=== PATIENT | female | born 1940 | race Caucasian/White ===

== ENCOUNTER → 2016-10-25 | Outpatient (CLI) | payer MEDICARE, OTHER | END | disposition home or self-care (01) | LOC: GMAB 11:12 | PROVIDERS: ATTEND Family Medicine | DX: E03.9 Hypothyroidism, unspecified (principal) ==

== ENCOUNTER → 2016-10-26 | Outpatient (CLI) | payer MEDICARE, OTHER | LOC: GMAB 16:59 | PROVIDERS: ATTEND Family Medicine | DX: D50.9 Iron deficiency anemia, unspecified (principal); E53.8 Deficiency of other specified B group vitamins; R30.0 Dysuria ==

== ENCOUNTER → 2017-01-25 | Outpatient (CLI) | payer MEDICARE, OTHER | END | disposition home or self-care (01) | LOC: GMAB 15:06 | PROVIDERS: ATTEND Family Medicine | DX: D50.9 Iron deficiency anemia, unspecified (principal); E53.8 Deficiency of other specified B group vitamins ==

== ENCOUNTER → 2017-04-26 | Outpatient (CLI) | payer MEDICARE, OTHER | END | disposition home or self-care (01) | LOC: GMAB 16:35 | PROVIDERS: ATTEND Family Medicine | DX: E53.8 Deficiency of other specified B group vitamins (principal); D50.9 Iron deficiency anemia, unspecified ==

== ENCOUNTER → 2017-06-16 | Outpatient (CLI) | payer MEDICARE, OTHER ==
--- NOTE | 2017-06-16 17:02 | RAD ---
EXAM DESCRIPTION: Hand,Left 3 Views CLINICAL HISTORY: PAIN IN LEFT HAND COMPARISON: None. TECHNIQUE: Left hand 3 views FINDINGS: Distal interphalangeal joint arthritis is observed in the hand. The exam reveals a prior old avulsive injury of the ulnar styloid process. Mild osteopenia is noted. Mild degenerative changes are observed in the metacarpal carpal articulation of the first digit. IMPRESSION: Degenerative changes are observed in the hand. No acute fracturing is detected. Electronically signed by: Rd Ortega MD 06/16/2017 5:01 PM CDT
--- NOTE | 2017-06-16 17:04 | RAD ---
EXAM DESCRIPTION: Hand,Right 3 Views CLINICAL HISTORY: PAIN IN RIGHT HAND COMPARISON: None. TECHNIQUE: Right hand 3 views. FINDINGS: Mild degenerative changes are observed in the metacarpal phalangeal joint of the first digit. Degenerative changes are also observed in the metacarpocarpal articulation of the first digit. Distal interphalangeal joint degenerative changes are observed. No fracturing is detected. IMPRESSION: Degenerative changes are observed. No fracturing is detected. Electronically signed by: Rd Ortega MD 06/16/2017 5:02 PM CDT
== END | disposition home or self-care (01) ==
LOC: RAD 07:41
PROVIDERS: ATTEND Orthopaedic Surgery
DX: M79.641 Pain in right hand (principal); Z01.818 Encounter for other preprocedural examination

== ENCOUNTER 2017-06-28 05:49 | Day surgery (SDC) | payer MEDICARE, OTHER ==
--- NOTE | 2017-06-24 08:44 | HP ---
CHIEF COMPLAINT: Bilateral hand numbness, right greater than left. HISTORY OF PRESENT ILLNESS: Sofya is a 76-year-old female with a history of pain and numbness in the hands. She says it wakes her up at night on a very frequent basis. She denies any radiation of pain or neurologic symptoms proximal to the wrist. She has had the right side going on for several years. Because of the severity and chronic nature of the right sided type symptoms, she has requested operative intervention. We have discussed the risks, benefits and alternatives to operative therapy. PAST SURGICAL HISTORY: 1. Aortic valve replacement. MEDICATIONS: 1. Lisinopril. 2. Carvedilol. 3. Glipizide. 4. Metformin. 5. Simvastatin. 6. Omeprazole. 7. Levothyroxine. 8. Citalopram. 9. Aspirin. 10. Fish oil. ALLERGIES: SULFA. CODE STATUS: Full code. IMMUNIZATIONS: Up to date. SOCIAL HISTORY: The patient does not drink, smoke or use any illicit drugs. FAMILY HISTORY: None pertinent to today's complaint. REVIEW OF SYSTEMS: Negative except as indicated in the History of Present Illness. PHYSICAL EXAMINATION: VITAL SIGNS: Blood pressure 135/65. Pulse 67. Height 5'3". Weight 136. MENTAL STATUS: The patient is awake, alert, and is able to give a good history and participate in the physical. The patient is oriented to person, place and time. SKIN: Normal tone and turgor. HEENT: Normocephalic, atraumatic. Pupils equal, round and reactive. Mucosal membranes are moist. NECK: Normal range of motion. No thyromegaly, no lymphadenopathy. CHEST: Normal respiratory excursion. CARDIAC: Regular rate and rhythm. No murmurs, rubs or gallops. MUSCULOSKELETAL: She has positive carpal compression test bilaterally. She does have some thenar atrophy bilateral, right greater than left. Sensation proximal to the wrist is intact. She does have some subjective paresthesias at rest in both hands, but more prominent on the right. She does have full range of motion of the shoulder, elbow, wrist and digits. IMAGING: X-rays show some arthritic changes, but no acute bony abnormality. ASSESSMENT: 1. Carpal tunnel syndrome. 2. Arthritis. PLAN: At this point, we have discussed the risks, benefits, and alternatives to operative therapy. Because of the chronic and ongoing nature, she has requested carpal tunnel release. After discussing the risks, benefits and alternatives to that, the patient has given informed consent. #[id number] MTDD
[2017-06-28] MEDS ORDERED: LACTATED RINGERS 0 ML ONE (08:20)
[2017-06-28] MEDS ORDERED: SODIUM CHL 0.9% 50ML MIN-BAG+ 50 ML IVPB ONE (08:25)
[2017-06-28] MEDS ORDERED: ceFAZolin SODIUM 1 GM VIAL ONE ×2 (08:25→11:23)
[2017-06-28] MEDS ORDERED: LACTATED RINGERS 1,000 ML ONE (08:25)
[2017-06-28] MEDS ORDERED: BUPIVACAINE 0.25% INJ 30 ML VIAL INJ ONE (11:23)
[2017-06-28] MEDS ORDERED: LIDOCAINE 1% 50 ML VIAL INJ ONE (11:23)
[2017-06-28] MEDS ORDERED: VANCOMYCIN HCL INJ 1,000 MG VIAL IVPB ONE (11:23)
[2017-06-28] MEDS ORDERED: PROPOFOL 200 MG/20 ML VIAL IV ONE (12:00)
[2017-06-28] MEDS ORDERED: LIDOCAINE 1% 10 ML VIAL INJ ONE (12:00)
[2017-06-28] MEDS ORDERED: fentaNYL CITRATE INJ 50 MCG/ML AMP ONE (14:07)
[2017-06-28 15:25] VITALS: BP 171/81; TEMP 98.3; O2SAT 97
--- NOTE | 2017-06-29 08:35 | OP ---
DATE OF PROCEDURE: 06/28/17 PREOPERATIVE DIAGNOSIS: 1. Carpal tunnel syndrome. POSTOPERATIVE DIAGNOSIS: 1. Carpal tunnel syndrome. PROCEDURE: 1. Carpal tunnel release. SURGEON: Reji Haddad MD. DOUGH MOLDER HAND: Jeremy Young CST, SA-C. ANESTHESIA: Local with sedation. COMPLICATIONS: None. FINDINGS: Thickening of the transverse carpal ligament with mild thenar atrophy. INDICATION: The patient has a history of both numbness and pain in the wrist. The symptoms have become intrusive to her and have been waking her up at night. She has had symptoms during the day as well. Because of the ongoing symptoms , she has requested operative intervention. After discussing the risks, benefits and alternatives to that, the patient has given informed consent for carpal tunnel release. PROCEDURE: The patient was brought to the Operating Room and placed in the supine position. Sedation was administered and local anesthetic was injected into the operative area under sterile conditions. After the injection of anesthetic, the arm was sterilely prepped and draped. A longitudinal incision was made directly overlying the transverse carpal ligament and blunt dissection was carried down to the ligament. The transverse carpal ligament was sharply transected along its length and a [employer] elevator was used to ensure complete release of the ligament. Once release had been confirmed, the wound was thoroughly irrigated and the wound was closed with Nylon suture. A sterile dressing was placed and the patient was taken to the Day Surgery Unit. POSTOPERATIVE INSTRUCTIONS: The patient has been encouraged to do range of motion of the digits and will followup with us in two days. #[id number] [facility]
== END 2017-06-28 15:27 | disposition home or self-care (01) ==
LOC: AMB 05:49
PROVIDERS: ATTEND Orthopaedic Surgery
DX: G56.01 Carpal tunnel syndrome, right upper limb (principal); I10 Essential (primary) hypertension; I25.10 Atherosclerotic heart disease of native coronary artery without angina pectoris; E11.9 Type 2 diabetes mellitus without complications; K21.9 Gastro-esophageal reflux disease without esophagitis; M19.90 Unspecified osteoarthritis, unspecified site; Z87.891 Personal history of nicotine dependence; Z95.2 Presence of prosthetic heart valve; Z88.2 Allergy status to sulfonamides; Z79.82 Long term (current) use of aspirin; Z79.84 Long term (current) use of oral hypoglycemic drugs; Z79.899 Other long term (current) drug therapy
CPT/HCPCS: 01810; 36416; 64721; 82948; J0690; J3010; J3370; J3490; J7050; J7120

== ENCOUNTER → 2017-11-01 | Outpatient (CLI) | payer MEDICARE, OTHER | LOC: GMAB 12:09 | PROVIDERS: ATTEND Family Medicine | DX: E53.8 Deficiency of other specified B group vitamins (principal); D50.9 Iron deficiency anemia, unspecified; E03.9 Hypothyroidism, unspecified; E11.9 Type 2 diabetes mellitus without complications; E78.2 Mixed hyperlipidemia ==

== ENCOUNTER → 2018-05-19 | Outpatient (CLI) | payer MEDICARE ==
--- NOTE | 2018-05-19 11:28 | US ---
EXAM DESCRIPTION: Carotid Duplex CLINICAL HISTORY: 77 years, Female, DIZZINESS R42 COMPARISON: [None.] FINDINGS: Indirect estimation of percent stenosis is inferred from velocity parameters and cross referenced to published or self-generated correlations among velocity parameters. Peak systolic velocity right common carotid artery 79 centimeters/second. Peak systolic velocity right internal carotid artery 71 centimeters/second. Right ICA to CCA ratio 0.9. Antegrade flow in the right vertebral artery. Grayscale images show a small amount of plaque in the right carotid bifurcation. Peak systolic velocity left common carotid artery 52 centimeters/second. Peak systolic velocity left internal carotid artery 58 centimeters/second. Left ICA to CCA ratio 1.1. [Antegrade] flow in the left vertebral artery. Grayscale images show a small amount of plaque in the left carotid bifurcation. IMPRESSION: Mild (less than 50%) bilateral carotid artery stenosis. Electronically signed by: Jose Judge MD 05/19/2018 11:27 AM CDT
== END ==
LOC: US 09:35
PROVIDERS: ATTEND Family Medicine
DX: I65.23 Occlusion and stenosis of bilateral carotid arteries (principal); R53.82 Chronic fatigue, unspecified; R42 Dizziness and giddiness

== ENCOUNTER → 2018-07-07 | Outpatient (CLI) | payer MEDICARE ==
--- NOTE | 2018-07-07 11:43 | RAD ---
EXAM DESCRIPTION: Wrist,Left 3 Views CLINICAL HISTORY: 78 years Female, PAIN IN LEFT WRIST COMPARISON: None available. FINDINGS: The visualized bones are well-mineralized.No acute fracture or dislocation. Radiocarpal and distal radioulnar joint osteoarthritis is noted. The soft tissues appear grossly unremarkable. IMPRESSION: Radiocarpal and distal radioulnar joint osteoarthritis is noted. Electronically signed by: Dilia De La Fuente MD 07/07/2018 11:41 AM CDT
== END ==
LOC: RAD 07:30
PROVIDERS: ATTEND Orthopaedic Surgery
DX: M25.532 Pain in left wrist (principal); M19.032 Primary osteoarthritis, left wrist

== ENCOUNTER → 2018-09-04 | Outpatient (CLI) | payer MEDICARE ==
--- NOTE | 2018-09-04 16:41 | MAM ---
EXAM DESCRIPTION: 3D Screening BILATERAL : Digital Mammography. CLINICAL HISTORY: 78 years Female ANNUAL SCREENING . No complaints. No personal or family history of breast cancer. Childbirth. Postmenopausal 55 years. No HRT. Lifetime risk of developing breast cancer (Tyrer-Cuzick model)(%): 2.0. COMPARISON: 2-D digital screening bilateral mammography May 25 2016. TECHNIQUE: Bilateral CC and MLO projection full-field images, digital tomosynthesis mammographic technique. CAD not available for tomosynthesis or 2-D images. FINDINGS: The breast parenchymal density pattern is: Scattered areas of fibroglandular density. No skin thickening or nipple retraction. Right axillary lymph nodes. Bilateral solitary microcalcifications and coarse calcifications. Bilateral microcalcifications with a benign appearance are associated with soft tissue densities. This includes a tight group of microcalcifications in the 12:00 position of the posterior third of the left breast. These appear stable. These are consistent with degenerating fibroadenomas. No new focal, stellate mass or density, focal asymmetry , and no suspicious microcalcifications bilaterally. IMPRESSION: Benign exam. BIRAD CATEGORY: 2 BENIGN FINDINGS. RECOMMENDATIONS: FOLLOW UP: Routine digital bilateral mammographic screening, one year interval from August 2018. Written communication explaining the IMPRESSION and follow-up, will be mailed to the patient and referring health care provider. According to the [employer], yearly mammograms are recommended starting at age 40 and continuing as long as a woman is in good health. Any breast change noted on a breast self-exam should be reported promptly to the patient's healthcare provider. Breast MRI is recommended for women with an approximately 20-25% or greater lifetime risk of breast cancer, including women with a strong family history of breast or ovarian cancer and women who have been treated for Hodgkin's disease. A negative mammographic report should not delay tissue diagnosis in patients with significant clinical history or physical findings. Extremely dense breast tissue limits the sensitivity of digital mammography. Electronically signed by: Jeremy Keith MD 09/04/2018 4:40 PM ORTHOTICS TECHNICIAN
== END ==
LOC: MAMMO 09:00
PROVIDERS: ATTEND Family Medicine
DX: Z12.31 Encounter for screening mammogram for malignant neoplasm of breast (principal)

== ENCOUNTER → 2018-11-10 | Outpatient (CLI) | payer MEDICARE | LOC: GMAE 11:00 | PROVIDERS: ATTEND Family Medicine | DX: E03.9 Hypothyroidism, unspecified (principal) ==

== ENCOUNTER → 2019-04-17 | Outpatient (CLI) | payer MEDICARE | LOC: GMAE 11:17 | PROVIDERS: ATTEND Family Medicine | DX: D50.9 Iron deficiency anemia, unspecified (principal); E53.8 Deficiency of other specified B group vitamins ==

== ENCOUNTER → 2019-04-20 | Outpatient (CLI) | payer MEDICARE ==
--- NOTE | 2019-04-20 14:11 | RAD ---
EXAM DESCRIPTION: Wrist,Left 3 Views CLINICAL HISTORY: 78 years, Female, M25.532. Pain. COMPARISON: 07/07/2018. Technique: Frontal lateral and oblique views of the left wrist was obtained. FINDINGS: Images of the left wrist demonstrate no acute displaced fracture or dislocation. Mild osteoarthritic changes at the thumb CMC, radiocarpal, and distal radioulnar articulations. Chronic avulsion injury of the ulna styloid process, unchanged. The bone mineralization is decreased. The soft tissues are unremarkable. IMPRESSION: 1. No acute displaced fracture or dislocation. 2. Mild osteoarthrosis. 3. Osteopenia. Electronically signed by: Inder Gottlieb DO 04/20/2019 2:10 PM CDT
== END ==
LOC: RAD 09:08
PROVIDERS: ATTEND Orthopaedic Surgery
DX: M19.032 Primary osteoarthritis, left wrist (principal); M85.832 Other specified disorders of bone density and structure, left forearm

== ENCOUNTER → 2019-10-03 | Outpatient (CLI) | payer MEDICARE ==
--- NOTE | 2019-10-04 20:11 | MAM ---
EXAM DESCRIPTION: 3D Screening BILATERAL : Digital Mammography. CLINICAL HISTORY: 79 years Female SCREEN . No complaints. No personal or family history of breast cancer. Menarche age 12. Childbirth age 16. Menopause age 20. No HRT. Lifetime risk of developing breast cancer (Tyrer-Cuzick model)(%): 1.8. COMPARISON: Bilateral screening digital breast tomosynthesis August 2018. 2-D digital screening bilateral mammography May 2016.. TECHNIQUE: Bilateral CC and MLO projection full-field images, digital tomosynthesis mammographic technique. Bilateral digital 2-D full-field MLO images. CAD available for 2-D images. FINDINGS: The breast parenchymal density pattern is: Scattered areas of fibroglandular density. No skin thickening or nipple retraction. Bilateral solitary microcalcifications. Coarse and lamellated coarse calcifications. Secretory calcifications. Multiple groups of coarse calcifications bilaterally. Some are associated with soft tissue density. 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 Bilateral skin mole markers. No new focal, stellate mass or density, focal asymmetry , and no suspicious microcalcifications bilaterally. Stable mammograms compared to prior study. IMPRESSION: Benign exam. BIRAD CATEGORY: 2 BENIGN FINDINGS. RECOMMENDATIONS: FOLLOW UP: Routine digital bilateral mammographic screening, one year interval from September 2019. Written communication explaining the IMPRESSION and follow-up, will be mailed to the patient and referring health care provider. According to the [employer], yearly mammograms are recommended starting at age 40 and continuing as long as a woman is in good health. Any breast change noted on a breast self-exam should be reported promptly to the patient's healthcare provider. Breast MRI is recommended for women with an approximately 20-25% or greater lifetime risk of breast cancer, including women with a strong family history of breast or ovarian cancer and women who have been treated for Hodgkin's disease. A negative mammographic report should not delay tissue diagnosis in patients with significant clinical history or physical findings. Extremely dense breast tissue limits the sensitivity of digital mammography. Electronically signed by: Jeremy Keith MD 10/04/2019 8:10 PM FEATHER TRIMMER
== END ==
LOC: MAMMO 11:30
PROVIDERS: ATTEND Family Medicine
DX: Z12.31 Encounter for screening mammogram for malignant neoplasm of breast (principal)

== ENCOUNTER → 2020-05-27 | Outpatient (CLI) | payer MEDICARE | LOC: GMAE 14:19 | PROVIDERS: ATTEND Family Medicine | DX: E03.9 Hypothyroidism, unspecified (principal); E11.9 Type 2 diabetes mellitus without complications ==